=== PATIENT | female | born 1960 | race Caucasian/White ===

== ENCOUNTER 2018-08-05 15:39 | Emergency (ER) | payer OTHER ==
[~2018-08-05] VITALS: Ht 154.9 cm; Wt 59.0 kg
== END 2018-08-05 21:02 | disposition home or self-care (01) ==
LOC: ER 15:39
DX: G44.89 Other headache syndrome (principal)

== ENCOUNTER 2023-02-05 08:42 | Outpatient (CLI) | payer OTHER ==
[~2023-02-05 08:42] MED LIST: HYZAAR 50-12.51 EACH
== END 2023-02-05 08:55 | disposition home or self-care (01) ==
LOC: RX STUDY 08:42
PROVIDERS: ATTEND Internal Medicine Gastroenterology
DX: R13.19 Other dysphagia (principal)